=== PATIENT | female | born 1930 | race Caucasian/White ===

== ENCOUNTER 2018-05-12 17:03 | Inpatient (IN) | payer MEDICARE, MEDICAID ==
[~2018-05-12] VITALS: Ht 162.6 cm; Wt 62.6 kg
--- NOTE | 2018-05-12 17:11 | NUR ---
RECEIVED PATIENT AT THIS TIME. PT WAS MYLENE GARZA FROM [facility]: MORE ALTERED THAN USUAL. LKW 1400. POOR HISTORIAN, SCREAMING, SPEAKS IN [place] ONLY. GOWNED AND PLACED ON CONT CARDIAC MONITORING. WILL CONT ON MONITORING
--- NOTE | 2018-05-12 17:12 | NUR ---
PT TAKEN TO CT SCAN
--- NOTE | 2018-05-12 17:16 | NUR ---
CALLED [facility] AND DR SHOEMAKER WAS PAGED FOR CALL BACK.
[2018-05-12 17:18] LABS: BASOPHILS # (AUTO) 0.1 /CMM (0.0-0.2); BASOPHILS % (AUTO) 0.7 % (0.0-2.0); EOSINOPHILS % (AUTO) 0.2 % (0.0-6.0); HEMATOCRIT 37 % (33-45); HEMOGLOBIN 12.6 g/dL (11.5-14.8); LYMPHOCYTES # (AUTO) 0.9 /CMM (0.8-4.8); LYMPHOCYTES % (AUTO) 7.3 % (20.0-44.0); MEAN CORPUSCULAR HGB CONC 34 g/dl (31.0-36.0); MEAN CORPUSCULAR VOLUME 92 fL (82-100); MONOCYTES # (AUTO) 0.8 /CMM (0.1-1.30); MONOCYTES % (AUTO) 6.6 % (2.0-12.0); NEUTROPHILS # (AUTO) 10.1 /CMM (1.8-8.9); NEUTROPHILS % (AUTO) 85.2 % (43.0-81.0); PLATELET COUNT (AUTO) 291 /CMM (150-450); RDW COEFFICIENT OF VARIATION 12.6 (11.5-15.0); RED BLOOD CELL COUNT(AUTO) 4.04 MIL/uL (4.0-5.2); WHITE BLOOD COUNT (AUTO) 11.9 K/uL (4.3-11.0)
--- NOTE | 2018-05-12 17:25 | NUR ---
PT BACK FROM CT SCAN
[2018-05-12 17:27] LABS: CALCIUM, SERUM 9.7 mg/dL (8.5-10.1); CARBON DIOXIDE 23 mmol/L (21-32); CHLORIDE 103 mmol/L (98-107); CREATININE 0.6 mg/dL (0.6-1.3); GLUCOSE 164 mg/dL (74-106); SODIUM SERUM 138 mmol/L (136-145); UREA NITROGEN, BLOOD 18 mg/dL (7-18)
[2018-05-12 17:29] LABS: INR 0.92 (0.85-1.15)
[2018-05-12 17:34] LABS: TROPONIN I < 0.017 ng/mL (0.00-0.056)
[2018-05-12 17:57] LABS: CHOLESTEROL 167 mg/dL (<200); HDL CHOLESTEROL 44 mg/dL (40-60); LDL 102 mg/dL (0-99); TRIGLYCERIDES 107 mg/dL (30-150)
[2018-05-12 18:20] LABS: BAND % (MANUAL) 20 % (0.0-5.0); LYMPHOCYTES % (MANUAL) 7 % (16-48); MONOCYTES % (MANUAL) 4 % (0-11.0); NEUTROPHILS % (MANUAL) 69 (42-76)
[2018-05-12 18:42] LABS: APPEARANCE,URINE Slightly Cloudy (CLEAR); BILIRUBIN,URINE SMALL (NEGATIVE); BLOOD, URINE Moderate Ery/uL (NEGATIVE); COLOR,URINE Dark (YELLOW); KETONES,URINE Trace (NEGATIVE); LEUKOCYTE ESTERASE ,URINE Trace (NEGATIVE); NITRITE, URINE Positive (NEGATIVE); PH,URINE 5.5 (5.0-8.0); PROTEIN,URINE 30 mg/dl (NEGATIVE); UGLUCOSE Negative (NEGATIVE); UROBILINOGEN,URINE >=8.0 EU/dL (0.2)
[2018-05-12 18:54] LABS: BACTERIA,URINE 3+ /HPF (None Seen); SQUAMOUS EPITHELIAL CELL,UR Moderate /HPF (None Seen)
[2018-05-12] MEDS ORDERED: POLY17PO4 PO (18:54)
[2018-05-12] MEDS ORDERED: ACET-868 PO (18:54)
[2018-05-12] MEDS ORDERED: PRAV20TA4 PO (18:54)
[2018-05-12] MEDS ORDERED: MIRT15TA PO (18:54)
[2018-05-12] MEDS ORDERED: SENN-18 PO (18:54)
[2018-05-12] MEDS ORDERED: MAGN400O6 GT (18:54)
[2018-05-12] MEDS ORDERED: SERT25TA PO (18:54)
[2018-05-12] MEDS ORDERED: ASCO-340 PO (18:54)
[2018-05-12] MEDS ORDERED: LACT1TAB20 PO (18:54)
[2018-05-12] MEDS ORDERED: ALBU2.5V38 IH ×2 (18:54)
[2018-05-12] MEDS ORDERED: DIVA500T2 PO (18:54)
[2018-05-12] MEDS ORDERED: BISA10SU8 RC (18:54)
[2018-05-12] MEDS ORDERED: LEVO330T2 PO (18:54)
[2018-05-12] MEDS ORDERED: VITA1TAB20 PO (18:54)
[2018-05-12] MEDS ORDERED: CHOL200026 PO (18:54)
[2018-05-12] MEDS ORDERED: ASPI-1169 PO (18:54)
[2018-05-12] MEDS ORDERED: CEFTRIAXONE 1GM BAG (ER ONLY) 50 ML IV ONE (18:56)
--- NOTE | 2018-05-12 18:58 | NUR ---
PAGED DR TOO GASTELUM
[2018-05-12] MEDS ORDERED: CEFTRIAXONE 1GM BAG (ER ONLY) 1 GM/50 ML PIGGYBACK IV ONE (19:00)
--- NOTE | 2018-05-12 19:03 | NUR ---
REPORT GIVEN TO SANJIV RN FOR CONT OF CARE
--- NOTE | 2018-05-12 19:03 | NUR ---
RECEIVED REPORT FROM GAMAL CASTELLANOS FOR JOSE MANUEL.
[2018-05-12] MEDS ORDERED: IV NS 0.9% 1,000 ML BAG IV ONE (19:30)
--- NOTE | 2018-05-12 19:52 | NUR ---
ASSIGNED TO TELE RM#: [id number], DX: ALTERED MENTAL STATUS, ACCEPTING MD: TOO GASTELUM.
[2018-05-12 20:54] VITALS: BP 131/77
[2018-05-12] MEDS: IV NS 0.9% 1,000 ML IV PRN (22:02)
[2018-05-12] MEDS ORDERED: PRAVASTATIN SODIUM 20 MG TABLET PO SCH (22:30)
[2018-05-12] MEDS ORDERED: MIRTAZAPINE 15 MG TABLET PO SCH (22:30)
[2018-05-12] MEDS: SENNOSIDES 8.6 MG TABLET PO SCH (22:46)
[2018-05-12] MEDS: DOXYCYCLINE HYCLATE (100 MG) 100 MG TABLET PO SCH (22:46)
--- NOTE | 2018-05-12 22:47 | NUR ---
RN NOTES PRAVASTATIN 20MG NOT AVAILABLE. WILL CLARIFY WITH MD FOR SUBSTITUTE
[2018-05-13] VITALS (9 sets, daily range): BP systolic 96–127; BP diastolic 48–58
[2018-05-13 05:17] LABS: BASOPHILS % (AUTO) 0.3 % (0.0-2.0); EOSINOPHILS % (AUTO) 0.8 % (0.0-6.0); HEMATOCRIT 32 % (33-45); HEMOGLOBIN 10.8 g/dL (11.5-14.8); LYMPHOCYTES # (AUTO) 1.8 /CMM (0.8-4.8); LYMPHOCYTES % (AUTO) 16.5 % (20.0-44.0); MEAN CORPUSCULAR HGB CONC 34 g/dl (31.0-36.0); MEAN CORPUSCULAR VOLUME 97 fL (82-100); MONOCYTES # (AUTO) 1.2 /CMM (0.1-1.30); MONOCYTES % (AUTO) 10.8 % (2.0-12.0); NEUTROPHILS # (AUTO) 7.9 /CMM (1.8-8.9); NEUTROPHILS % (AUTO) 71.6 % (43.0-81.0); PLATELET COUNT (AUTO) 265 /CMM (150-450); RDW COEFFICIENT OF VARIATION 13.2 (11.5-15.0); RED BLOOD CELL COUNT(AUTO) 3.32 MIL/uL (4.0-5.2); WHITE BLOOD COUNT (AUTO) 11.1 K/uL (4.3-11.0)
[2018-05-13 05:26] LABS: CALCIUM, SERUM 8.5 mg/dL (8.5-10.1); CARBON DIOXIDE 27 mmol/L (21-32); CHLORIDE 107 mmol/L (98-107); CREATININE 0.6 mg/dL (0.6-1.3); GLUCOSE 108 mg/dL (74-106); POTASSIUM 3.4 mmol/L (3.5-5.1); SODIUM SERUM 142 mmol/L (136-145); UREA NITROGEN, BLOOD 17 mg/dL (7-18)
--- NOTE | 2018-05-13 07:14 | NUR ---
MS/RN Patient received Patient received from manager shift. Sleeping soundly at this time, appears in no distress. Call light within reach, safety measures in place. Will continue to monitor.
[2018-05-13] MEDS: DOXYCYCLINE HYCLATE (100 MG) 100 MG TABLET PO SCH ×2 (08:17→22:13)
--- NOTE | 2018-05-13 08:55 | NUR ---
MS/RN Medications Medications administered as ordered, pills given crushed with apple sauce.
--- NOTE | 2018-05-13 10:00 | NUR ---
MS/RN Labs reviewed Morning labs reviewed: -WBC - 11.1 -H&H - 10.8/32 -K+ 3.4 - replaced -Valproic acid - 39 -Lactic acid - 1.5
[2018-05-13] MEDS ORDERED: POTASSIUM CHLORIDE 20 MEQ TAB.PRT.SR PO ONE (11:00)
--- NOTE | 2018-05-13 12:28 | NUR ---
MS/RN Blood sugar Blood sugar at noon 98, no coverage needed or ordered.
--- NOTE | 2018-05-13 12:32 | NUR ---
MS/electrical contacts adjuster update Spoke with son, also DPOA, updated as to reason for admission and plan of care. In agreement with both.
[2018-05-13] MEDS: IV NS 0.9% 1,000 ML IV PRN (12:55)
--- NOTE | 2018-05-13 15:30 | NUR ---
MS/RN S/B Dr Farley Seen by Dr Farley - no new orders.
--- NOTE | 2018-05-13 18:13 | NUR ---
MS/RN End note Patient becoming increasingly agitated as the day has gone on, although not attempting to climb out of bed, shouting and screaming. Reoriented to surroundings. but remains confused. Safety measures in place, will continue to monitor and endorse to manager night
[2018-05-13] MEDS ORDERED: CEFTRIAXONE 1 G in IV D5W 50 ML IV SCH (19:00)
--- NOTE | 2018-05-13 20:10 | NUR ---
COMMUNICATIONS FIELD TECHNICIAN OPENING NOTES RECEIVED REPORT FROM ROMA YEUNG. PATIENT A/A/O X1-2 W/ SOME CONFUSION, ABLE TO MAKE SOME NEEDS KNOWN & STATE PAIN. BREATHING EVEN & UNLABORED, TOLERATING O2 @ 2LPM VIA NC. ON TELE W/ SINUS RHYTHM, HR 75. LEFT AC IV #20 INTACT & PATENT W/ DRESSING CDI & IVF NS INFUSING WELL @ 60 ML/HR. DENIES ANY PAIN OR DISCOMFORT @ THIS TIME. SAFETY MEASURES MAINTAINED W/ SITTER @ BEDSIDE. RESTING COMFORTABLY IN BED. WILL CONTINUE TO MONITOR.
[2018-05-13] MEDS: SENNOSIDES 8.6 MG TABLET PO SCH (22:13)
[2018-05-13] MEDS: ATORVASTATIN 10 MG TABLET PO SCH (22:13)
[2018-05-14] VITALS: BP 117/64
[2018-05-14 04:00] VITALS: BP 117/45
[2018-05-14 06:38] LABS: BASOPHILS % (AUTO) 0.2 % (0.0-2.0); EOSINOPHILS % (AUTO) 1.2 % (0.0-6.0); HEMATOCRIT 31 % (33-45); HEMOGLOBIN 10.5 g/dL (11.5-14.8); LYMPHOCYTES # (AUTO) 1.4 /CMM (0.8-4.8); LYMPHOCYTES % (AUTO) 15.6 % (20.0-44.0); MEAN CORPUSCULAR HGB CONC 34 g/dl (31.0-36.0); MEAN CORPUSCULAR VOLUME 96 fL (82-100); MONOCYTES # (AUTO) 0.8 /CMM (0.1-1.30); MONOCYTES % (AUTO) 9.1 % (2.0-12.0); NEUTROPHILS # (AUTO) 6.7 /CMM (1.8-8.9); NEUTROPHILS % (AUTO) 73.9 % (43.0-81.0); PLATELET COUNT (AUTO) 287 /CMM (150-450); RDW COEFFICIENT OF VARIATION 13.2 (11.5-15.0); RED BLOOD CELL COUNT(AUTO) 3.22 MIL/uL (4.0-5.2); WHITE BLOOD COUNT (AUTO) 9.1 K/uL (4.3-11.0)
[2018-05-14 07:01] LABS: THYROID STIMULATING HORMONE 1.227 uIU/mL (0.358-3.74); URIC ACID 4.1 mg/dL (2.6-7.2)
[2018-05-14] MEDS ORDERED: MAGNESIUM HYDROXIDE 30 ML UDC PO PRN (07:30)
[2018-05-14] MEDS ORDERED: BISACODYL SUPP (10 MG) 10 MG/SUPP.RECT SUPP.RECT RC PRN (07:30)
[2018-05-14] MEDS ORDERED: ALBUTEROL FS 2.5 MG/3 ML VIAL.NEB NEB PRN (07:30)
[2018-05-14] MEDS ORDERED: ACETAMINOPHEN 325 MG TABLET PO PRN (07:30)
--- NOTE | 2018-05-14 07:30 | NUR ---
ELECTRONIC PLOTTING SYSTEM OPERATOR NOTE: RECEIVED PATIENT IN BED, ASLEEP, BUT AROUSABLE WITH TACTILE STIMULI. RESPIRATION IS EVEN AND UNLABORED. NO FACIAL GRIMACING NOTED. NOTED WITH A 1:1 SITTER. ON DIRECTOR OF MEDIA SR HR= 71. (L) AC IV LINE NOTED PATENT AND INTACT WITH NS@60ML/HR INFUSING. HOB ELEVATED. CALL LIGHT WITHIN REACH.
[2018-05-14 07:42] LABS: CALCIUM, SERUM 8.4 mg/dL (8.5-10.1); CARBON DIOXIDE 25 mmol/L (21-32); CHLORIDE 107 mmol/L (98-107); CREATININE 0.5 mg/dL (0.6-1.3); GLUCOSE 95 mg/dL (74-106); MAGNESIUM 1.6 mg/dL (1.8-2.4); POTASSIUM 3.4 mmol/L (3.5-5.1); SODIUM SERUM 141 mmol/L (136-145); UREA NITROGEN, BLOOD 14 mg/dL (7-18)
[2018-05-14 08:00] VITALS: BP 110/56
[2018-05-14] MEDS ORDERED: CHOLECALCIFEROL 1,000 UNIT TABLET (VIT D3) PO SCH (09:00)
[2018-05-14] MEDS ORDERED: LACTOBACILLUS RHAMNOSUS GG 1 EACH CAP.SPRINK PO SCH (09:00)
[2018-05-14] MEDS ORDERED: VITAMIN B COMP W-C 1 TAB TABLET PO SCH (09:00)
[2018-05-14] MEDS ORDERED: POTASSIUM CHLORIDE 20 MEQ TAB.PRT.SR PO SCH ×2 (09:00)
[2018-05-14] MEDS: Magnesium 1GM/D5W 100ML PREMIX 100 ML IV SCH ×2 (09:02→10:44)
[2018-05-14] MEDS: ASPIRIN 81 MG TAB.CHEW PO SCH (09:36)
[2018-05-14] MEDS: DOXYCYCLINE HYCLATE (100 MG) 100 MG TABLET PO SCH (09:36)
[2018-05-14] MEDS: POLYETHYLENE GLYCOL 3350 17 GM POWD.PACK PO SCH (09:36)
[2018-05-14] MEDS: SERTRALINE HCL 25 MG TABLET PO SCH (09:36)
[2018-05-14] MEDS: LEVOCARNITINE 330 MG TABLET PO SCH ×2 (09:37→17:02)
[2018-05-14] MEDS: DIVALPROEX SODIUM 500 MG TABLET.DR PO SCH ×2 (09:40→17:02)
--- NOTE | 2018-05-14 11:30 | NUR ---
LEGEND MAKER NOTE: PATIENT WAS NOTED AGGRESSIVE AND COMBATIVE, SPITTING, PINCHING AND TRYING TO KICK TOWARDS THE SITTER AND NURSE. SPOKE WITH DR. GASTELUM UPON MAKING ROUNDS AND PER MD, HE DOES NOT WANT THE PATIENT TO BE ON ANY PHYSICAL OR CHEMICAL RESTRAINT. MD WAS INFORMED THAT PATIENT WAS TRYING TO PULL OUT HER IV LINE DESPITE HIDING THE TUBINGS AND LINES. PER MD, WRAP THE PATIENT'S (L)ARM WITH THE IV LINE ALL THE WAY UP HER ARM SO THE PATIENT WILL NOT NOTICE THE IV SITE.
[2018-05-14 16:00] VITALS: BP 114/44
[2018-05-14] MEDS: CEFAZOLIN 1 GM in IV D5W 50 ML IV SCH (17:03)
--- NOTE | 2018-05-14 19:04 | NUR ---
MS RN NOTE: PATIENT IN BED, ASLEEP, BUT AROUSABLE WITH TACTILE STIMULI. RESPIRATION IS EVEN AND UNLABORED. NO FACIAL GRIMACING NOTED. NOTED WITH A 1:1 SITTER. (L) FOREARM IV LINE NOTED PATENT AND INTACT. HOB ELEVATED. CALL LIGHT WITHIN REACH. REPORT GIVEN TO PM SHIFT NURSE FOR CONTINUITY OF CARE.
--- NOTE | 2018-05-14 19:25 | NUR ---
MS 1 RN NOTE PT IN BED AWAKE. A/O X 1, CONFUSED. NO SOB, NO DISTRESS OR DISCOMFORT NOTED. DENIES PAIN. ON O2 2L VIA N/C O2 SAT 96%. PT IS WITH PRODUCTIVE COUGH. SL LFA #22 G INTACT AND PATENT. SITTER AT BED SIDE. SIDE RAILS UP X 3 AND CALL LIGHT WITHIN REACH. VSS. CONTINUE TO MONITOR HER.
[2018-05-14 20:00] VITALS: BP 112/57
[2018-05-14] MEDS: MIRTAZAPINE 15 MG TABLET PO SCH (21:17)
[2018-05-14] MEDS: SENNOSIDES 8.6 MG TABLET PO SCH (21:17)
[2018-05-14] MEDS: ATORVASTATIN 10 MG TABLET PO SCH (21:17)
[2018-05-14] MEDS ORDERED: PRAVASTATIN SODIUM 20 MG TABLET PO SCH (22:00)
[2018-05-14] MEDS ORDERED: ATORVASTATIN 10 MG TABLET PO SCH (22:00)
[2018-05-15 04:00] VITALS: BP 142/75
[2018-05-15] MEDS: CEFAZOLIN 1 GM in IV D5W 50 ML IV SCH ×3 (04:47→21:05)
--- NOTE | 2018-05-15 06:33 | NUR ---
MS 1 RN NOTE PT IN BED ASLEEP, EASILY AROUSABLE. C/O PAIN IN LOWER BACK 6/10 DULL ACHING. SITTER AT BED SIDE. SIDE RAILS UP X 3 AND CALL LIGHT WITHIN REACH. WILL ENDORSE TO DAY SHIFT NURSE FOR CONTINUE TO CARE.
[2018-05-15 06:39] LABS: CALCIUM, SERUM 8.8 mg/dL (8.5-10.1); CARBON DIOXIDE 30 mmol/L (21-32); CHLORIDE 113 mmol/L (98-107); CREATININE 0.6 mg/dL (0.6-1.3); GLUCOSE 101 mg/dL (74-106); MAGNESIUM 2.1 mg/dL (1.8-2.4); POTASSIUM 4.1 mmol/L (3.5-5.1); SODIUM SERUM 148 mmol/L (136-145); UREA NITROGEN, BLOOD 12 mg/dL (7-18)
--- NOTE | 2018-05-15 07:35 | NUR ---
MS RN OPENING NOTE RECEIVED BEDSIDE SBAR REPORT ON THE PATIENT. PATIENT IS A/O X1, CONFUSED, FORGETFUL, EASILY AGITATED. ASLEEP, EASILY ABUSABLE IN BED. BED IS LOCKED, IN LOWEST POSITION, SIDE RAILS UP X2, BED ALARM IS ON. SITTER AT THE BEDSIDE. BAUDILIO LIGHT WITHIN REACH. PATIENT DENIES PAIN/DISCOMFORT AT THIS TIME. ALL NEEDS ARE MET. WILL CONTINUE TO ASSESS/MONITOR THROUGHOUT THE SHIFT.
[2018-05-15 08:00] VITALS: BP 124/66
[2018-05-15 08:23] VITALS: BP 124/66
[2018-05-15] MEDS: SERTRALINE HCL 25 MG TABLET PO SCH (08:43)
[2018-05-15] MEDS: POLYETHYLENE GLYCOL 3350 17 GM POWD.PACK PO SCH (08:43)
[2018-05-15] MEDS: ASPIRIN 81 MG TAB.CHEW PO SCH (08:43)
[2018-05-15] MEDS: LEVOCARNITINE 330 MG TABLET PO SCH ×2 (08:44→18:31)
[2018-05-15] MEDS: DIVALPROEX SODIUM 125 MG CAP.SPRINK PO SCH ×2 (08:46→18:29)
--- NOTE | 2018-05-15 11:45 | NUR ---
ZOE GASTELUM AT THE BEDSIDE. PER DR GASTELUM RN APPLIED DEMENTIA IV DRESSING PER PROTOCOL. BOTH ARMS ARE LOOSELY WRAPPED WITH KERLIX UP TO THE SHOULDER TO HIDE THE IV TUBING AND PREVENT PULLING. PATIENT WAS COOPERATIVE. TOLERATED PROCEDURE WELL.
--- NOTE | 2018-05-15 13:12 | NUR ---
CAME TO ADMINISTER ANCEF. PATIENT BECAME AGITATED, STARTED SCREAMING. WILL RETURN TO ADMINISTER NOT TO AGITATE THE PATIENT.
[2018-05-15 16:00] VITALS: BP 108/59
[2018-05-15 16:32] VITALS: BP 108/59
--- NOTE | 2018-05-15 19:35 | NUR ---
MS RN CLOSING NOTE GAVE BEDSIDE SBAR REPORT ON THE PATIENT. PATIENT IS A/O X1, CONFUSED, FORGETFUL, EASILY AGITATED. ASLEEP, EASILY ABUSABLE IN BED. BED IS LOCKED, IN LOWEST POSITION, SIDE RAILS UP X2, BED ALARM IS ON. SITTER AT THE BEDSIDE. BAUDILIO LIGHT WITHIN REACH. PATIENT DENIES PAIN/DISCOMFORT AT THIS TIME. ALL NEEDS ARE MET. ALL NURSING CARE RENDERED. PATIENT REMINDED TO REPOSITION AND SHIFT WEIGHT THROUGHOUT THE SHIFT. ENDORSED TO THE REPOSSESSION AGENT FOR JOSE MANUEL.
[2018-05-15 20:00] VITALS: BP 112/50
--- NOTE | 2018-05-15 20:12 | NUR ---
RN OPENING NOTES RECEIVED REPORT FROM NAVID YEUNG. PATIENT A/A/O X1 W/ CONFUSION BUT ABLE TO STATE PAIN. BREATHING EVEN & UNLABORED, TOLERATING O2 @ 2LPM VIA NC. SKIN WARM, DRY & INTACT W/ PULSES PRESENT. LEFT FA IV #22 INTACT & PATENT W/ DRESSING CDI & WRAPPED IN KERLIX FOR PROTECTION. SALINE LOCKED @ THIS TIME. DENIES ANY PAIN OR DISCOMFORT @ THIS TIME. SAFETY MEASURES MAINTAINED W/ BED ALARM ON & CALL LIGHT WITHIN REACH. PATIENT RESTING COMFORTABLY IN BED. WILL CONTINUE TO MONITOR.
[2018-05-15] MEDS: SENNOSIDES 8.6 MG TABLET PO SCH (21:05)
[2018-05-15] MEDS: MIRTAZAPINE 15 MG TABLET PO SCH (21:05)
[2018-05-15] MEDS: ATORVASTATIN 10 MG TABLET PO SCH (21:05)
[2018-05-16 04:00] VITALS: BP 136/63
[2018-05-16] MEDS: CEFAZOLIN 1 GM in IV D5W 50 ML IV SCH ×2 (05:26→12:48)
--- NOTE | 2018-05-16 07:30 | NUR ---
RN OPENING NOTES RECEIVED REPORT FROM PM RN. PATIENT A/A/O X1 W/ CONFUSION BUT ABLE TO STATE PAIN.SLEEPING AT THIS TIME. BREATHING EVEN & UNLABORED, TOLERATING O2 @ 2LPM VIA NC. LEFT FA IV #22 INTACT & PATENT W/ DRESSING CDI & WRAPPED IN KERLIX FOR PROTECTION. SALINE LOCKED @ THIS TIME. DENIES ANY PAIN OR DISCOMFORT @ THIS TIME. SAFETY MEASURES MAINTAINED W/ BED ALARM ON & CALL LIGHT WITHIN REACH. PATIENT RESTING COMFORTABLY IN BED. WILL CONTINUE TO MONITOR.
[2018-05-16 08:00] VITALS: BP 150/75
[2018-05-16] MEDS: SERTRALINE HCL 25 MG TABLET PO SCH (08:19)
[2018-05-16] MEDS: ASPIRIN 81 MG TAB.CHEW PO SCH (08:19)
[2018-05-16] MEDS: DIVALPROEX SODIUM 125 MG CAP.SPRINK PO SCH (08:19)
[2018-05-16] MEDS: LEVOCARNITINE 330 MG TABLET PO SCH (08:20)
[2018-05-16] MEDS: POLYETHYLENE GLYCOL 3350 17 GM POWD.PACK PO SCH (08:20)
--- NOTE | 2018-05-16 09:33 | NUR ---
RN NOTES PATIENT AGITATED.START SCREAMING WITHOUT ANY REASON.UNABLE TO CONTROL LEFT MESSAGE TO .
--- NOTE | 2018-05-16 10:00 | NUR ---
RN NOTES PATIENT CALM DOWN.NO SCREAMING ,WATCHING TV STILL USING BAD WORDS SOME TIMES.DENIES PAIN.CONTINUE TO MONITOR.
--- NOTE | 2018-05-16 15:00 | NUR ---
RN NOTES GOT DISCHARGE ORDER.MADE AWARE MADE AWARE THAT PATIENT IS ON IV ATB AND NEED STOP DATE FOR ATB.TOLD TO D/C IV ATB AND TO CONTINUE WITH PO KEFLEX 500MG BID TILL 05/18/18.REPORT GIVEN TO LAZ YEUNG AT [facility].MADE AWARE ABOUT ATB TO CONTINUE UNTIL 05/18/18.STARTING FIRST DOSE TODAY AT 2100.CALL MADE TO FAMILY SPOKE TO SON TAMMIE AWARE ABOUT THE DISCHARGE TO SNF.CONTINUE TO MONITOR.
--- NOTE | 2018-05-16 15:25 | NUR ---
CROWN PRESSER NOTE PATENT DISCHARGED TO [facility] IN STABLE CONDITION WITH PARAMEDICS IN A GURNEY.NO SOB NO DISTRESS NOTED AT THIS TIME.ON O2 2L VIA NASAL CANULA SATURATING AT 96%.IV REMOVED ,MINIMAL BLEEDING NOTED.PRESSURE DRESSING APPLIED.REPORT AND DISCHARGE PAPERWORK GIVEN TO PARAMEDICS .NOTIFIED THAT REPORT GIVEN TO LAZ RN AT [facility].NO BELONGING FROM ADMISSION.ALL NEEDS MET.
== END 2018-05-16 15:31 | DRG 871 ==
LOC: ER 17:07 → TELE1 20:25 → MEDSG1 05-14 16:31
PROVIDERS: ADMIT Internal Medicine; ATTEND Internal Medicine
DX: A41.9 Sepsis, unspecified organism (principal); G93.40 Encephalopathy, unspecified; N39.0 Urinary tract infection, site not specified; J98.11 Atelectasis; E87.2 Acidosis; E72.20 Disorder of urea cycle metabolism, unspecified; K21.9 Gastro-esophageal reflux disease without esophagitis; E11.9 Type 2 diabetes mellitus without complications; I25.10 Atherosclerotic heart disease of native coronary artery without angina pectoris; D63.8 Anemia in other chronic diseases classified elsewhere; B96.20 Unspecified Escherichia coli [E. coli] as the cause of diseases classified elsewhere; F02.80 Dementia in other diseases classified elsewhere, unspecified severity, without behavioral disturbance, psychotic disturbance, mood disturbance, and anxiety; G30.9 Alzheimer's disease, unspecified; M19.90 Unspecified osteoarthritis, unspecified site; Z96.653 Presence of artificial knee joint, bilateral; E87.8 Other disorders of electrolyte and fluid balance, not elsewhere classified; R53.1 Weakness; D72.829 Elevated white blood cell count, unspecified; I11.0 Hypertensive heart disease with heart failure; I50.9 Heart failure, unspecified; F32.9 Major depressive disorder, single episode, unspecified
CPT/HCPCS: 36415; 70450-TC; 71045-TC; 72170-TC; 80048-TC; 80061-TC; 80164-TC; 81000-TC; 82306; 82378; 82728-TC; 82746; 82962-TC; 83540-TC; 83605-TC; 83615-TC; 83735-TC; 84443-TC; 84484-TC; 84550-TC; 85025-TC; 85045-TC; 85652-TC; 85730-TC; 87040-TC; 87081-TC; 87086-TC; 87186-TC; A4606; J0690; J0696; J3475; J3490; J7030; J7060; Z7610